=== PATIENT | male | born 1950 ===

== ENCOUNTER 2018-04-08 12:06 | Emergency (ER) | payer MEDICARE ==
[2018-04-08 12:12] VITALS: RESP 18; O2SAT 100
--- NOTE | 2018-04-08 12:36 | ED PDOC ---
HPI: Back Time Seen by Provider: 04/08/18 12:27 Chief Complaint (Nursing): Back Pain Chief Complaint (Provider): Back pain History Per: Patient, Family (son) History/Exam Limitations: no limitations Onset/Duration Of Symptoms: Days (5x days) Current Symptoms Are (Timing): Still Present Quality Of Discomfort: Pressure Severity: Moderate Previous Symptoms: None Additional Complaint(s): 67 year old male with no past medical history presents to the ED for an evaluation of left lower (pressure-like) back pain that radiates to the left side of his abdomen, that has been ongoing for 5x days. 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 Patient reports that he has been in bed for the past 3x days. Otherwise: (-) injury/trauma to back, (-) cough/SOB, (-) chest pain, (-) nausea, (-) vomiting, (-) diarrhea, (-) paresthesias, (-) weakness/numbness, (-) saddle anesthesia, (-) urinary symptoms, (-) acute bowel or bladder dysfunction, (-) fever. Has no history of prior back problems. Patient reports taking Aleve and Tylenol until last night with no relief of symptoms. PMD: None Past Medical History Reviewed: Historical Data, Nursing Documentation, Vital Signs Vital Signs: Last Vital Signs Temp 98.2 F 04/08/18 12:11 Pulse 57 L 04/08/18 12:11 Resp 18 04/08/18 12:11 BP 175/92 H 04/08/18 12:11 Pulse Ox 100 04/08/18 12:11 - Medical History PMH: No Chronic Diseases - Surgical History Surgical History: Hernia Repair - Family History Family History: States: No Known Family Hx - Social History Current smoker - smoking cessation education provided: Yes (10 cigarettes per day) Alcohol: < 2 Drinks/Day (2 shots of rum tuesday-tuesday after work) - Home Medications Home Medications: Ambulatory Orders Medication Instructions Recorded Acetaminophen [Acetaminophen 8 650 mg PO Q8 PRN #21 tablet.er 04/08/18 Hour] Meloxicam [Mobic] 15 mg PO DAILY PRN #10 tab 04/08/18 Methocarbamol [Robaxin-750] 750 mg PO Q8 PRN #12 tablet 04/08/18 - Allergies Allergies/Adverse Reactions: Allergies Allergy/AdvReac Type Severity Reaction Status Date / Time No Known Allergies Allergy Verified 04/08/18 12:35 Review of Systems ROS Statement: Except As Marked, All Systems Reviewed And Found Negative Constitutional: Negative for: Fever Cardiovascular: Negative for: Chest Pain Respiratory: Negative for: Cough Gastrointestinal: Positive for: Abdominal Pain. Negative for: Nausea, Vomiting, Diarrhea Genitourinary Male: Negative for: Dysuria, Incontinence, Other (numbness of groin area) Musculoskeletal: Positive for: Back Pain (left lower pressure) Neurological: Negative for: Weakness, Numbness Physical Exam - Reviewed Nursing Documentation Reviewed: Yes Vital Signs Reviewed: Yes - Physical Exam Comments: GENERAL APPEARANCE: Patient is awake, alert, oriented x 3, uncomfortable appearing. SKIN: Warm, dry; (-) cyanosis. EYES: (-) conjunctival pallor. ENMT: Mucous membranes moist. Airway patent, (-) stridor. NECK: Supple, FROM (-) tenderness, (-) stiffness, (-) lymphadenopathy. CHEST AND RESPIRATORY: (-) rales, (-) rhonchi, (-) wheezes; breath sounds equal bilaterally. Respirations even and nonlabored, speaking in full sentences. HEART AND CARDIOVASCULAR: (-) irregularity ABDOMEN AND GI: Soft, (-)distention (-) guarding (-) rebound (-) CVA tenderness (-) palpable mass. BACK: (+) left paralumbar tenderness, (-) spasm, (-) direct bony tenderness, (- ) deformity EXTREMITIES: (-) deformity. Distal pulses good bilaterally. NEURO AND PSYCH: Mental status as above. Intact sensation bilaterally; normal strength in extension of the knees, plantar and dorsiflexion of the toes. Gait: steady. Speech: clear. (-) facial asymmetry (-) aphasia. Cerebellar tests intact. - Laboratory Results Result Diagrams: 04/08/18 13:30 04/08/18 13:30 - ECG ECG: Positive for: Interpreted By Me, Viewed By Me ECG Rhythm: Positive for: Sinus Rhythm (with 2nd degree AV block, rate is 48 beats per minute. QTC: 384) Rate: 48 O2 Sat by Pulse Oximetry: 100 (RA) Pulse Ox Interpretation: Normal Medical Decision Making Medical Decision Makin:25 Clinical Impression: 67 year old male with acute back and abdominal pain. Inital plan: EKG CMP lactic acid lipase troponin I CBC with differential urine culture urinalysis pepcid 40 mg IVP toradol 15 mg IVP valium 5 mg PO once 1400 CBC and CMP grossly unremarkable. Lipase WNL. 1440 U/A unremarkable. Troponin <0.01 Lactic acid: 0.8 CT abd/pel with IV contrast ordered. [address] reviewed, radiology report follows Date of service: 04/08/2018 PROCEDURE: CT Abdomen and Pelvis with contrast HISTORY: left lower back pain, LUQ pain COMPARISON: None. TECHNIQUE: Contrast dose: 95 mL Omnipaque 300 Radiation dose: Total exam DLP = 215.25 mGy-cm. This CT exam was performed using one or more of the following dose reduction techniques: Automated exposure control, adjustment of the mA and/or kV according to patient size, and/or use of iterative reconstruction technique. FINDINGS: LOWER THORAX: Unremarkable. LIVER: Unremarkable. No gross lesion or ductal dilatation. GALLBLADDER AND BILE DUCTS: Unremarkable. PANCREAS: Unremarkable. No gross lesion or ductal dilatation. SPLEEN: Unremarkable. ADRENALS: Unremarkable. No mass. KIDNEYS AND URETERS: Unremarkable. No hydronephrosis. No solid mass. VASCULATURE: Unremarkable. No aortic aneurysm. There is atherosclerotic calcification of the abdominal aorta. BOWEL: There is diverticulosis of the sigmoid colon with scattered colonic diverticula elsewhere. There is no evidence of diverticulitis. There is no bowel obstruction. No other abnormal bowel loops are identified. APPENDIX: Normal appendix. PERITONEUM: Unremarkable. No free fluid. No free air. LYMPH NODES: Unremarkable. No enlarged lymph nodes. BLADDER: Unremarkable. REPRODUCTIVE: Mild prostate enlargement BONES: Grade 2 spondylolisthesis at L5-S1 with bilateral L5 spondylolysis. OTHER FINDINGS: None. IMPRESSION: Grade 2 spondylolisthesis at L5-S1 with bilateral L5 spondylolysis. Colonic diverticulosis without evidence of diverticulitis. No other significant abnormality is identified. Results discussed with patient and son at bedside. Patient requesting additional medication at this time. Tramadol 50mg PO ordered. Repeat BP: 169/94 Patient and son advised to follow up elevated BP readings in ED with PMD/clinic. Patient continues to deny cardiac or respiratory symptoms. 1715 On re-evaluation, patient reports improvement of symptoms. On exam, patient remains AAOx3, in no acute distress. Lungs clear to auscultation, cardiac RRR, repeat neuro exam shows no focal findings. Gait steady in ED without assistance. Vitals stable. Lab/Diagnostic results d/w the patient in great detail. Diagnosis of acute back pain, musculoskeletal pain d/w the patient. Based on history, exam and diagnostic results, plan will be for outpatient follow up with clinic/ortho. Patient instructed to follow-up with pmd / referral provided / the clinic in 1- 2 days without fail. Advised to take medication as prescribed. Return to the emergency room at any time for any new or worsening symptoms. Patient states he fully agrees with and understands discharge instructions. States that he agrees with the plan and disposition. Verbalized and repeated discharge instructions and plan. I have given the patient opportunity to ask any additional questions. Scribe Attestation: Documented by Annel Sanchez, acting as a scribe for Annel Slade Provider Scribe Attestation: All medical record entries made by the Scribe were at my direction and personally dictated by me. I have reviewed the chart and agree that the record accurately reflects my personal performance of the history, physical exam, medical decision making, and the department course for this patient. I have also personally directed, reviewed, and agree with the discharge instructions and disposition. Disposition - Clinical Impression Clinical Impression: Acute back pain, Musculoskeletal back pain, Spondylolisthesis at L5-S1 level, Elevated blood pressure reading - Patient ED Disposition Is Patient to be Admitted: No Counseled Patient/Family Regarding: Studies Performed, Diagnosis, Need For Followup, Rx Given - Disposition Referrals: [facility] [Outside] Bebe Harevy MD [Staff Provider] - Disposition: Routine/Home Disposition Time: 17:15 Condition: STABLE Additional Instructions: La atencin mdica de emergencia que recibi hoy se dirigi a adelina sntomas agudos. Si le recetaron algn medicamento, llnelo y tmelo segn las indicaciones. Los sntomas pueden tardar varios fernandez en resolverse. Regrese al Departamento de Emergencias si adelina sntomas empeoran, no mejoran o si tiene otros problemas. Comunquese con agee mdico dentro de 2 fernandez para karli nueva evaluacin y veronica un seguimiento o llame a elise de los mdicos / clnicas a los que dunlap sido referido y que figuran en el formulario de Informacin de visita al paciente que se incluye en agee paquete de milly. Lleve con usted a agee consulta de seguimiento toda la documentacin que recibi del milly junto con los medicamentos que est tomando. Nuestro tratamiento no puede reemplazar la atencin mdica continua por parte de un proveedor de atencin primaria (PCP) fuera del departamento de emergencias. Prescriptions: Acetaminophen [Acetaminophen 8 Hour] 650 mg PO Q8 PRN #21 tablet.er PRN Reason: Pain, Moderate (4-7) Meloxicam [Mobic] 15 mg PO DAILY PRN #10 tab PRN Reason: Pain, Moderate (4-7) Methocarbamol [Robaxin-750] 750 mg PO Q8 PRN #12 tablet PRN Reason: Muscle Spasm Instructions: Low Back Pain in Adults, High Blood Pressure in Adults, Spondylolisthesis, Back Exercises, Medicines for High Blood Pressure, Hypertension (ED) Forms: [employer] (German) Print Language: [place] - POA Present On Arrival: None Results - Lab Results Lab Results: 04/08/18 04/08/18 04/08/18 13:30 13:30 13:30 WBC RBC Hgb Hct MCV MCH MCHC RDW Plt Count MPV Neut % (Auto) Lymph % (Auto) [place] % (Auto) Eos % (Auto) Baso % (Auto) Neut # (Auto) Lymph # (Auto) [place] # (Auto) Eos # (Auto) Baso # (Auto) Sodium 140 Potassium 4.5 Chloride 102 Carbon Dioxide 28 Anion Gap 15 BUN 17 Creatinine 0.8 Est GFR ( Amer) > 60 Est GFR (Non-Af Amer) > 60 Random Glucose 98 Lactic Acid 0.8 Calcium 9.3 Total Bilirubin 0.4 AST 22 ALT 20 L Alkaline Phosphatase 100 Troponin I < 0.0120 Total Protein 8.0 Albumin 4.3 Globulin 3.7 Albumin/Globulin Ratio 1.2 Lipase 60 Urine Color Yellow Urine Clarity Slighty-cloudy Urine pH 6.0 Ur Specific [place] 1.017 Urine Protein Negative Urine Glucose (UA) Neg Urine Ketones Negative Urine Blood Negative Urine Nitrate Negative Urine Bilirubin Negative Urine Urobilinogen 0.2-1.0 Ur Leukocyte Esterase Neg Urine RBC (Auto) 3 Urine Microscopic WBC 1 Ur Squamous Epith Cells 1 04/08/18 13:30 WBC 8.1 RBC 4.54 Hgb 14.4 Hct 44.5 MCV 97.9 H MCH 31.7 H MCHC 32.4 L RDW 14.2 Plt Count 423 H MPV 7.4 Neut % (Auto) 64.5 Lymph % (Auto) 26.2 [place] % (Auto) 7.7 Eos % (Auto) 1.0 Baso % (Auto) 0.6 Neut # (Auto) 5.2 Lymph # (Auto) 2.1 [place] # (Auto) 0.6 Eos # (Auto) 0.1 Baso # (Auto) 0.1 Sodium Potassium Chloride Carbon Dioxide Anion Gap BUN Creatinine Est GFR ( Amer) Est GFR (Non-Af Amer) Random Glucose Lactic Acid Calcium Total Bilirubin AST ALT Alkaline Phosphatase Troponin I Total Protein Albumin Globulin Albumin/Globulin Ratio Lipase Urine Color Urine Clarity Urine pH Ur Specific [place] Urine Protein Urine Glucose (UA) Urine Ketones Urine Blood Urine Nitrate Urine Bilirubin Urine Urobilinogen Ur Leukocyte Esterase Urine RBC (Auto) Urine Microscopic WBC Ur Squamous Epith Cells
[2018-04-08 13:05] VITALS: PULSE 48
[2018-04-08 13:42] LABS: BASO # 0.1 K/uL (0.0-0.2); BASO % 0.6 % (0.0-2.0); EOS # 0.1 K/uL (0.0-0.7); HEMOGLOBIN 14.4 g/dL (12.0-18.0); LYMPH # 2.1 K/uL (1.0-4.3); LYMPH % 26.2 % (20.0-40.0); MEAN CELL VOLUME 97.9 fl (80.0-94.0); MEAN CORPUSCULAR HEMOGLOBIN 31.7 pg (27.0-31.0); MEAN CORPUSCULAR HGB CONC 32.4 g/dL (33.0-37.0); MEAN PLATELET VOLUME 7.4 fl (7.2-11.7); MONO # 0.6 K/uL (0.0-0.8); MONO % 7.7 % (0.0-10.0); NEUT # 5.2 K/uL (1.8-7.0); NEUT % 64.5 % (50.0-75.0); NRBC % 0.1 % (0.0-0.0); RBC 4.54 Mil/uL (4.40-5.90); RED CELL DISTRIBUTION WIDTH 14.2 % (11.5-14.5); WHITE BLOOD COUNT 8.1 K/uL (4.8-10.8)
[2018-04-08 13:44] LABS: URINE BILIRUBIN NEGATIVE (NEGATIVE); URINE BLOOD NEGATIVE (NEGATIVE); URINE CLARITY SLIGHTY-CLOUDY (Clear); URINE COLOR YELLOW (YELLOW); URINE GLUCOSE (UA) NEG (Normal); URINE LEUKOCYTE ESTERASE NEG Leu/uL (Negative); URINE PROTEIN NEGATIVE (NEGATIVE); URINE UROBILINOGEN 0.2-1.0 mg/dL (0.2-1.0)
[2018-04-08 13:56] LABS: ALB/GLOB RATIO 1.2 (1.0-2.1); ALBUMIN 4.3 g/dL (3.5-5.0); ALT/SGPT 20 U/L (21-72); AST/SGOT 22 U/L (17-59); BLOOD UREA NITROGEN 17 mg/dl (9-20); CALCIUM 9.3 mg/dL (8.4-10.2); GFR NON-AFRICAN AMERICAN > 60; LIPASE 60 U/L (23-300)
[2018-04-08 14:34] LABS: SQUAMOUS EPITHIAL 1 /hpf (0-5)
[2018-04-08] MEDS ORDERED: Sodium Chloride 0.9% 50 ML IV ONE (15:10)
[2018-04-08] MEDS ORDERED: Iohexol 300 100 ML IJ ONE (15:10)
--- NOTE | 2018-04-08 16:06 | CT ---
Date of service: 04/08/2018 PROCEDURE: CT Abdomen and Pelvis with contrast HISTORY: left lower back pain, LUQ pain COMPARISON: None. TECHNIQUE: Contrast dose: 95 mL Omnipaque 300 Radiation dose: Total exam DLP = 215.25 mGy-cm. This CT exam was performed using one or more of the following dose reduction techniques: Automated exposure control, adjustment of the mA and/or kV according to patient size, and/or use of iterative reconstruction technique. FINDINGS: LOWER THORAX: Unremarkable. LIVER: Unremarkable. No gross lesion or ductal dilatation. GALLBLADDER AND BILE DUCTS: Unremarkable. PANCREAS: Unremarkable. No gross lesion or ductal dilatation. SPLEEN: Unremarkable. ADRENALS: Unremarkable. No mass. KIDNEYS AND URETERS: Unremarkable. No hydronephrosis. No solid mass. VASCULATURE: Unremarkable. No aortic aneurysm. There is atherosclerotic calcification of the abdominal aorta. BOWEL: There is diverticulosis of the sigmoid colon with scattered colonic diverticula elsewhere. There is no evidence of diverticulitis. There is no bowel obstruction. No other abnormal bowel loops are identified. APPENDIX: Normal appendix. PERITONEUM: Unremarkable. No free fluid. No free air. LYMPH NODES: Unremarkable. No enlarged lymph nodes. BLADDER: Unremarkable. REPRODUCTIVE: Mild prostate enlargement BONES: Grade 2 spondylolisthesis at L5-S1 with bilateral L5 spondylolysis. OTHER FINDINGS: None. IMPRESSION: Grade 2 spondylolisthesis at L5-S1 with bilateral L5 spondylolysis. Colonic diverticulosis without evidence of diverticulitis. No other significant abnormality is identified.
[2018-04-08 16:34] VITALS: BP 169/94; TEMP 98
--- NOTE | 2018-04-08 17:56 | CARD ---
APPROVED REPORT Date of service: 04/08/2018 EKG Measurement Heart [id number] <Conclusion> Sinus bradycardia Nonspecific T wave abnormality Abnormal ECG
== END 2018-04-08 17:30 | disposition home or self-care (01) ==
LOC: H.ER 12:06
DX: M54.5 Low back pain (principal); M43.16 Spondylolisthesis, lumbar region; I10 Essential (primary) hypertension; F17.210 Nicotine dependence, cigarettes, uncomplicated
CPT/HCPCS: 74177; 80053; 81003; 83605; 83690; 84484; 85025; 87086; 93005; 96374; 96375; 99283; J1885; Q9967